=== PATIENT | female | born 1970 | race African-American/Black ===

== ENCOUNTER 2018-11-08 05:47 | Inpatient (IN) | payer BC ==
[~2018-11-08] VITALS: Ht 167.6 cm; Wt 118.8 kg
[2018-11-08] MEDS ORDERED: LACTATED RINGERS 1,000 ML IV SCH (06:40)
[2018-11-08 06:41] LABS: CHLORIDE 110 mEq/L (98-107)
[2018-11-08 06:42] LABS: EOSINOPHILS % 2.4 % (0.0-5.0); HEMATOCRIT. 42.2 % (36.0-48.0); HEMOGLOBIN. 14.4 g/dL (12.0-16.0); MEAN CORPUSCULAR HEMOGLOBIN 30.6 pg (28.0-32.0); MEAN CORPUSCULAR VOLUME 89.3 fL (81.0-99.0); MEAN PLATELET VOLUME 7.8 fl (7.4-10.4); MONOCYTES % 9.2 % (2.0-8.0); NEUTROPHILS % 51.4 % (40.0-76.0); PLATELET 298 x1000/uL (130-400); RED BLOOD CELL COUNT 4.72 mill/uL (4.2-5.4); RED CELL DISTRIBUTION WIDTH 13.1 % (11.6-14.6)
[2018-11-08 06:43] LABS: PARTIAL THROMBOPLASTIN TIME 28.6 sec (23.4-31.0); PROTHROMBIN TIME 10.1 sec (9.6-11.0)
[2018-11-08 06:51] LABS: CLARITY URINE CLEAR (CLEAR); COLOR URINE YELLOW (YELLOW); KETONES URINE TRACE (NEGATIVE); LEUKOCYTE ESTERASE URINE NEGATIVE (NEGATIVE); NITRITE URINE NEGATIVE (NEGATIVE); OCCULT BLOOD URINE NEGATIVE (NEGATIVE); PH URINE 5.5 (4.5-8.0); PROTEIN URINE NEGATIVE (NEGATIVE); SPECIFIC GRAVITY URINE 1.027 (1.005-1.030); UROBILINOGEN URINE 0.2 E.U./dL (0.2-1.0)
[2018-11-08 06:56] LABS: UCG SCREEN NEGATIVE
[2018-11-08] MEDS ORDERED: VASOPRESSIN 20 UNIT/ML 1ML ONE (07:03)
[2018-11-08] MEDS ORDERED: ROCURONIUM BROMIDE 10MG/ML VIAL 5ML IV ONE ×2 (07:44→09:29)
[2018-11-08] MEDS ORDERED: NEOSTIGMINE METHYLSULFATE 1MG/ML 10 ML VIAL ONE (07:44)
[2018-11-08] MEDS ORDERED: FENTANYL CITRATE/PF 50MCG/ML 2ML VIAL ONE ×2 (07:44→09:24)
[2018-11-08] MEDS ORDERED: CEFAZOLIN SODIUM 1000MG/VIAL ONE (07:45)
[2018-11-08] MEDS ORDERED: LIDOCAINE HCL/PF 1% 10 MG/ML 5ML VIAL ONE (07:45)
[2018-11-08] MEDS ORDERED: ONDANSETRON HCL 4MG/2ML INJ ONE (07:45)
[2018-11-08] MEDS ORDERED: PHENYLEPHRINE HCL 10 MG/ML 1ML (IV VIAL) IV ONE (07:45)
[2018-11-08] MEDS ORDERED: MIDAZOLAM HCL 2 MG/2 ML VIAL ONE (07:45)
[2018-11-08] MEDS ORDERED: DEXAMETHASONE 4MG/ML 1ML VIAL ONE (07:45)
[2018-11-08] MEDS ORDERED: SUCCINYLCHOLINE CHLORIDE 200MG/10ML IV ONE (07:45)
[2018-11-08] MEDS ORDERED: EPHEDRINE SULFATE 50MG/ML VIAL ONE (07:45)
[2018-11-08] MEDS ORDERED: PROPOFOL 200MG/20ML VIAL IV ONE (07:45)
[2018-11-08] MEDS ORDERED: GLYCOPYRROLATE 0.2 MG/ML 2ML VIAL ONE (07:45)
[2018-11-08] MEDS ORDERED: METOCLOPRAMIDE HCL 10MG/2ML VIAL ONE (07:45)
[2018-11-08] MEDS ORDERED: SODIUM CHLORIDE 0.9% 10ML VIAL ONE (07:45)
[2018-11-08] MEDS ORDERED: SODIUM CHLORIDE 0.9% 1,000 ML IV ONE (10:50)
[2018-11-08] MEDS ORDERED: MEPERIDINE HCL/PF 25MG/ML CPJ IV PRN ×2 (11:00)
[2018-11-08] MEDS ORDERED: ONDANSETRON HCL 4MG/2ML INJ IV PRN (11:00)
[2018-11-08] MEDS ORDERED: MORPHINE SULFATE 4 MG/ML CPJ (NOT FOR IM USE) IV PRN (11:00)
[2018-11-08] MEDS: HYDROMORPHONE HCL/PF 2MG/ML CPJ IV PRN ×5 (11:27→12:31)
[2018-11-08 12:00] VITALS: BP 150/92
[2018-11-08] MEDS ORDERED: HYDROMORPHONE PCA 10MG/50ML IV PRN (12:15)
[2018-11-08] MEDS ORDERED: DIPHENHYDRAMINE INJ IV PRN (12:15)
[2018-11-08] MEDS ORDERED: ONDANSETRON INJ IV PRN (12:15)
[2018-11-08] MEDS ORDERED: NALOXONE INJ IV PRN (12:15)
[2018-11-08 13:30] VITALS: BP 150/92
[2018-11-08] MEDS: DOCUSATE SODIUM 100MG CAPSULE PO SCH (15:00)
[2018-11-08 16:00] VITALS: BP 151/77
[2018-11-08] MEDS: DEXT 5%/LACTATED RINGERS 1,000 ML IV SCH (16:57)
[2018-11-08] MEDS ORDERED: DEXTROSE 50% WATER 50ML SYRINGE IV PRN (19:45)
[2018-11-08 20:00] VITALS: BP 104/71
[2018-11-08] MEDS: INSULIN LISPRO 100 UNITS/ML SUBCUT SCH (21:00)
[2018-11-08] MEDS: BLOOD SUGAR DIAGNOSTIC STRIP TEST SCH (21:00)
[2018-11-09] VITALS: BP 114/70
[2018-11-09 04:00] VITALS: BP 113/53
[2018-11-09 05:57] LABS: HEMATOCRIT. 41.5 % (36.0-48.0); HEMOGLOBIN. 13.7 g/dL (12.0-16.0); MEAN CORPUSCULAR HEMOGLOBIN 29.8 pg (28.0-32.0); MEAN PLATELET VOLUME 8.3 fl (7.4-10.4); PLATELET 282 x1000/uL (130-400); RED BLOOD CELL COUNT 4.61 mill/uL (4.2-5.4); RED CELL DISTRIBUTION WIDTH 13.3 % (11.6-14.6)
[2018-11-09] MEDS: BLOOD SUGAR DIAGNOSTIC STRIP TEST SCH ×4 (07:20→21:00)
[2018-11-09] MEDS: INSULIN LISPRO 100 UNITS/ML SUBCUT SCH ×4 (07:33→21:00)
[2018-11-09 08:00] VITALS: BP 125/60
[2018-11-09] MEDS: DOCUSATE SODIUM 100MG CAPSULE PO SCH (09:00)
[2018-11-09] MEDS ORDERED: HYDROCODONE/ACETAMINOPHEN 5/325MG TABLET PO PRN (11:00)
[2018-11-09 12:00] VITALS: BP 128/77
[2018-11-09] MEDS: DEXT 5%/LACTATED RINGERS 1,000 ML IV SCH ×2 (14:00→22:00)
[2018-11-09] MEDS: DOCUSATE SODIUM SUGAR FREE 100MG/10ML UDC PO SCH (14:28)
[2018-11-09 16:00] VITALS: BP 154/84
[2018-11-09] MEDS: IBUPROFEN 600MG TABLET PO PRN ×2 (16:37→22:50)
[2018-11-09 16:54] LABS: PLATELET ESTIMATE NORMAL
[2018-11-09 20:00] VITALS: BP 109/57
[2018-11-10] VITALS: BP 118/65
[2018-11-10 04:00] VITALS: BP 115/71
[2018-11-10] MEDS: DEXT 5%/LACTATED RINGERS 1,000 ML IV SCH (06:00)
[2018-11-10] MEDS: BLOOD SUGAR DIAGNOSTIC STRIP TEST SCH ×2 (06:48→11:48)
[2018-11-10] MEDS: INSULIN LISPRO 100 UNITS/ML SUBCUT SCH (07:34)
[2018-11-10 08:00] VITALS: BP 105/81
[2018-11-10] MEDS: DOCUSATE SODIUM SUGAR FREE 100MG/10ML UDC PO SCH (08:47)
[2018-11-10] MEDS: IBUPROFEN 600MG TABLET PO PRN (08:48)
[2018-11-10 10:43] VITALS: BP 105/81
== END 2018-11-10 12:05 | disposition home or self-care (01) | DRG 742 ==
LOC: OR 05:47 → 6EST 05:48
PROVIDERS: ADMIT Obstetrics & Gynecology Obstetrics; ATTEND Obstetrics & Gynecology Obstetrics
PROC: 0UT90ZL Resection of Uterus, Supracervical, Open Approach (ICD-10-PCS; principal; 2018-11-08)
PROC: 0UT70ZZ Resection of Bilateral Fallopian Tubes, Open Approach (ICD-10-PCS; 2018-11-08)
DX: D25.2 Subserosal leiomyoma of uterus (principal); Z68.41 Body mass index [BMI] 40.0-44.9, adult; Z83.3 Family history of diabetes mellitus; Z82.49 Family history of ischemic heart disease and other diseases of the circulatory system; Z82.61 Family history of arthritis; E66.9 Obesity, unspecified
CPT/HCPCS: 36415; 80048; 81025; 82962; 86850; 86900; 88305; 88307; 93005; J0330; J0690; J1100; J1170; J2250; J2370; J2405; J2704; J2710; J2765; J3010; J3490; J7121